=== PATIENT | female | born 1995 | race Caucasian/White ===

== ENCOUNTER → 2018-10-16 | Outpatient (CLI) | payer OTHER ==
[~2018-10-16] MED LIST: ACET-1966 PO; FLU60SYR36 IM; PREN-127 PO; VENL150C61 PO
[2018-10-16 10:55] LABS: PLATELET COUNT, AUTOMATED 261 K/uL (150-450)
== END ==
LOC: LAB 09:48
PROVIDERS: ATTEND Obstetrics & Gynecology
DX: Z34.91 Encounter for supervision of normal pregnancy, unspecified, first trimester (principal); R82.79 Other abnormal findings on microbiological examination of urine
CPT/HCPCS: 36415; 81001; 85025; 86592; 86703; 86762; 86850; 86900; 86901; 87088; 87340

== ENCOUNTER → 2018-11-02 | Outpatient (CLI) | payer OTHER ==
[~2018-11-02] MED LIST changes: +ONDA-2 PO
== END ==
LOC: LAB 08:07
PROVIDERS: ATTEND Student in an Organized Health Care Education/Training Program
DX: Z11.8 Encounter for screening for other infectious and parasitic diseases (principal); Z11.3 Encounter for screening for infections with a predominantly sexual mode of transmission
CPT/HCPCS: 87491; 87591

== ENCOUNTER → 2018-12-17 | Outpatient (CLI) | payer OTHER ==
[~2018-12-17] MED LIST changes: +NITR-105 PO; +PROM25VI14 IV
== END ==
LOC: LAB 08:54
PROVIDERS: ATTEND Student in an Organized Health Care Education/Training Program
DX: O26.899 Other specified pregnancy related conditions, unspecified trimester (principal)
CPT/HCPCS: 87088

== ENCOUNTER → 2019-01-14 | Outpatient (CLI) | payer MEDICAID ==
--- NOTE | 2019-01-14 13:52 | RADIOLOGY IMAGING REPORT ---
FACILITY: [facility] PATIENT NAME: Xiomara Castorena : 1995 MR: [id number] V: [id number] EXAM DATE: ORDERING PHYSICIAN: CUONG MONTERROSO TECHNOLOGIST: Location: [facility] - [place] Patient: Xiomara Castorena : 1995 Visit/Account:[id number] Date of Sevice: 01/14/2019 EXAMINATION: Ultrasound transabdominal OB > 14 weeks with anatomic evaluation HISTORY: Anatomic survey COMPARISON: None. TECHNIQUE: Transabdominal imaging was performed for assessment of the fetus and maternal pelvic structures. T ransvaginal imaging was not performed. FINDINGS: Placenta: Posterior without previa. Uterus: Gravid, otherwise normal Cervix: Long and closed. Maternal Ovaries: Not visualized. Maternal and other adnexa findings: Not evaluated Intrauterine gestations: One. presentation: Cephalic heart rate: Normal and regular at 160 bpm Amniotic fluid index: 11.0 cm Largest amniotic fluid pocket: 3.22 cm Gestational Parameters: BPD: 4.38 cm 19 weeks/ two days, 16% HC: 16.61 cm 19 weeks/ three days, 11% AC: 13.38 cm 19 weeks/ zero days, 10% FL: 3.01 cm 19 weeks/ three days, 16% Average ultrasound age (AUA): 19 weeks/two days, EARLENE 06/08/2019 Estimated gestational age by LMP: 20 weeks/one days, EARLENE 06/02/2019 Estimated weight (EFW): 274 grams +/- 40 grams EFW for EARLENE: Six percentile Anatomic Survey: Intracranial structures, 4-chamber heart, stomach, kidneys, urinary bladder, spine, 3-vessel cord and cord insertion are unremarkable. Two upper and two lower extremities visualized. Cardiac ventricula r outflow tracts, palate and lips are unremarkable in appearance. IMPRESSION: Single viable fetus in cephalic presentation with an estimated gestational age by measur ements of 19 weeks and two days. Estimated gestational age by LMP is 20 weeks and one day. Estimated weight 274 g equivalent to the 6th percentile Report Dictated By: Kenisha Vences MD at 01/14/2019 1:42 PM Report E-Signed By: Kenisha Vences MD at 01/14/2019 1:47 PM PARKERN:MICHELLE
== END ==
LOC: US 08:47
PROVIDERS: ATTEND Student in an Organized Health Care Education/Training Program
DX: Z02.9 Encounter for administrative examinations, unspecified (principal)

== ENCOUNTER → 2019-02-08 | Outpatient (CLI) | payer MEDICAID ==
--- NOTE | 2019-02-08 10:22 | RADIOLOGY IMAGING REPORT ---
[place] [facility] [place]IENT NAME: Xiomara Castorena : 1995 MR: [id number] V: [id number] EXAM DATE: ORDERING PHYSICIAN: CUONG MONTERROSO TECHNOLOGIST: [place] [facility] [place] Xiomara Castorena : 1995 Visit/Account:[id number] Date of Sevice: 02/08/2019 EXAMINATION: Ultrasound transabdominal OB > 14 weeks with anatomic evaluation HISTORY: Size less than dates COMPARISON: OB ultrasound 01/14/2019. TECHNIQUE: Transabdominal imaging was performed for assessment of the fetus and maternal pelvic structures. T ransvaginal imaging was not performed. FINDINGS: Placenta: Fundal without previa. Uterus: Gravid, otherwise normal Cervix: Long and closed. Maternal Ovaries: Not visualized. Maternal and other adnexa findings: Negative. Intrauterine gestations: One. presentation: Breech presentation. heart rate: Normal and regular at 153 bpm Amniotic fluid index: 9.27 cm Largest amniotic fluid pocket: 3.18 cm Gestational Parameters: BPD: 5.70 cm 23 weeks/ 4 days, 33 percentile HC: 21.08 cm 23 weeks/ 2 days, 15 percentile AC: 7.49 cm 22 weeks/ 3 days, 9 percentile FL: 4.13 cm 23 weeks/ 3 days, 28 percentile Average ultrasound age (AUA): 23 weeks/2 days, Estimated gestational age by LMP: 23 weeks/5 days, EARLENE 06/02/2019 Estimated weight (EFW): 545 grams +/- 80 grams EFW for LMP: 13 percentile Anatomic Survey: Anatomy is grossly normal. IMPRESSION: Single intrauterine fetus in a breech presentation, with ultrasound age 23 weeks and 2 days. This is consistent with gestational age based on LMP. Gestational age by LMP is 23 weeks and 5 days, with c orresponding estimated date of delivery 06/02/2019. Report Dictated By: Trino Augustin at 02/08/2019 10:10 AM Report E-Signed By: Trino Augustin at 02/08/2019 10:16 AM WSN:[email or web address]
== END ==
LOC: RAD 07:56
PROVIDERS: ATTEND Student in an Organized Health Care Education/Training Program
DX: Z02.9 Encounter for administrative examinations, unspecified (principal)